=== PATIENT | female | born 1975 | race Caucasian/White ===

== ENCOUNTER 2018-02-24 11:48 | Inpatient (IN) | payer OTHER ==
[~2018-02-24] VITALS: Ht 172.7 cm; Wt 85.5 kg
[2018-02-24] MEDS ORDERED: CLARITIN 1010 MG/TAB PO (12:02)
[2018-02-24] MEDS ORDERED: VITAMIN D31000 IU PO (12:02)
[2018-02-24 12:20] LABS: COLLECTION METHOD CLEAN CATCH
[2018-02-24 12:22] LABS: BASO # 0.1 (0.0-0.2); BASO % 0.6 % (0.0-2.0); EOS # 0.1 (0.0-0.7); EOS % 0.9 % (0-4.0); GRAN # 9.1 (1.4-6.5); GRAN % 72.4 % (42.2-75.2); HEMATOCRIT 39.8 % (37.0-47.0); HEMOGLOBIN 13.5 g/dl (12.5-16.0); LYMPH # 1.9 (1.2-3.4); LYMPH % 14.7 % (20.0-51.0); MEAN CELL VOLUME 90 fl (80.0-100.0); MEAN CORPUSCULAR HEMOGLOBIN 31 pg (27.0-31.0); MEAN CORPUSCULAR HGB CONC 34 g/dl (33.0-37.0); MEAN PLATELET VOLUME 10.6 fl (7.4-10.4); MONO # 1.4 (0.1-0.6); MONO % 11.1 % (1.7-9.3); PLATELET COUNT 285 K/mm3 (130-400); RED BLOOD COUNT 4.43 M/mm3 (4.10-5.30); REDCELL DISTRIBUTION WIDTH-CV 11.8 % (11.5-14.5)
[2018-02-24 12:33] LABS: MUCOUS Present /lpf; PH 6 (5-8); URINE APPEARANCE Hazy; URINE BACTERIA None Seen /hpf; URINE BILIRUBIN Negative (NEGATIVE); URINE BLOOD 1+ (NEGATIVE); URINE COLOR Amber; URINE GLUCOSE Negative (NEGATIVE); URINE KETONE Negative (NEGATIVE); URINE LEUKOCYTE ESTERASE Negative (NEGATIVE); URINE NITRATE Negative (NEGATIVE); URINE PROTEIN(semi-quant) 1+ (NEGATIVE); URINE UROBILINOGEN >=4.0 mg/dL (NEGATIVE)
[2018-02-24 12:35] LABS: ALBUMIN 4.2 gm/dL (3.5-5.0); BILIRUBIN,TOTAL 2.7 mg/dL (0.0-1.0); CREATININE, serum 0.78 mg/dL (0.52-1.25); POTASSIUM 3.8 mmol/L (3.4-5.0); TOTAL PROTEIN 8.7 gm/dL (6.4-8.2)
[2018-02-24 12:46] LABS: C-REACTIVE PROTEIN 14.3 mg/dL (0.0-0.9)
[2018-02-24 15:20] VITALS: BP 121/75; PULSE 96; TEMP 99
[2018-02-24 21:06] VITALS: BP 111/71; PULSE 104; TEMP 101.8
[2018-02-25 00:32] VITALS: BP 122/65; PULSE 95; TEMP 99.2
[2018-02-25 04:01] VITALS: BP 146/92; PULSE 110; TEMP 98.8
[2018-02-25 07:21] LABS: BASO # 0.1 (0.0-0.2); BASO % 0.4 % (0.0-2.0); EOS # 0.1 (0.0-0.7); EOS % 0.8 % (0-4.0); GRAN # 9.2 (1.4-6.5); GRAN % 76.8 % (42.2-75.2); LYMPH # 1.4 (1.2-3.4); LYMPH % 11.7 % (20.0-51.0); MEAN CELL VOLUME 91 fl (80.0-100.0); MEAN CORPUSCULAR HGB CONC 34 g/dl (33.0-37.0); MEAN PLATELET VOLUME 10.7 fl (7.4-10.4); MONO # 1.2 (0.1-0.6); MONO % 9.7 % (1.7-9.3); PLATELET COUNT 236 K/mm3 (130-400); RED BLOOD COUNT 3.74 M/mm3 (4.10-5.30); REDCELL DISTRIBUTION WIDTH-CV 11.9 % (11.5-14.5)
[2018-02-25 07:24] LABS: HEMATOCRIT 34.1 % (37.0-47.0); HEMOGLOBIN 11.5 g/dl (12.5-16.0); MEAN CORPUSCULAR HEMOGLOBIN 31 pg (27.0-31.0)
[2018-02-25 07:39] LABS: ALBUMIN 3.4 gm/dL (3.5-5.0); BILIRUBIN,TOTAL 3.8 mg/dL (0.0-1.0); CHOLESTEROL RISK RATIO 4.5
[2018-02-25 07:53] LABS: BILIRUBIN UNCONJUGATED 2.8 mg/dL (0.0-1.1)
[2018-02-25 08:07] LABS: TSH w REFLEX 1.33 uIU/mL (0.465-4.680)
[2018-02-25 12:28] VITALS: BP 122/69; PULSE 101; TEMP 100.2
[2018-02-25 17:39] VITALS: BP 109/71; PULSE 88; TEMP 99.6
[2018-02-25 19:39] VITALS: BP 124/74; PULSE 84; TEMP 99.1
[2018-02-25 23:28] VITALS: BP 113/69; PULSE 84; TEMP 98.5
[2018-02-26] VITALS (7 sets, daily range): BP systolic 108–128; BP diastolic 71–80; PULSE 77–107; TEMP 98.7–102.1
[2018-02-26 01:03] LABS: ANA SCREEN with REFLEX Negative (Negative)
[2018-02-26 06:27] LABS: BASO % 0.3 % (0.0-2.0); EOS # 0.1 (0.0-0.7); EOS % 1.1 % (0-4.0); GRAN # 7.7 (1.4-6.5); GRAN % 73.9 % (42.2-75.2); HEMOGLOBIN 10.2 g/dl (12.5-16.0); LYMPH # 1.5 (1.2-3.4); LYMPH % 14.2 % (20.0-51.0); MEAN CELL VOLUME 92 fl (80.0-100.0); MEAN CORPUSCULAR HEMOGLOBIN 31 pg (27.0-31.0); MEAN CORPUSCULAR HGB CONC 33 g/dl (33.0-37.0); MEAN PLATELET VOLUME 10.7 fl (7.4-10.4); MONO % 9.8 % (1.7-9.3); PLATELET COUNT 223 K/mm3 (130-400); RED BLOOD COUNT 3.34 M/mm3 (4.10-5.30); REDCELL DISTRIBUTION WIDTH-CV 11.7 % (11.5-14.5)
[2018-02-26 06:30] LABS: HEMATOCRIT 30.7 % (37.0-47.0)
[2018-02-26 06:44] LABS: ALBUMIN 3.1 gm/dL (3.5-5.0); BILIRUBIN UNCONJUGATED 1.5 mg/dL (0.0-1.1); BILIRUBIN,DIRECT 0.9 mg/dL (0.0-0.4); BILIRUBIN,TOTAL 2.4 mg/dL (0.0-1.0); CALCIUM 8.3 mg/dL (8.4-10.2); CREATININE, serum 0.68 mg/dL (0.52-1.25); POTASSIUM 3.8 mmol/L (3.4-5.0); TOTAL PROTEIN 6.5 gm/dL (6.4-8.2)
[2018-02-27 03:33] VITALS: BP 121/74; PULSE 93; TEMP 99.1
[2018-02-27 07:11] LABS: BASO % 0.4 % (0.0-2.0); EOS # 0.1 (0.0-0.7); EOS % 1.3 % (0-4.0); GRAN # 7.1 (1.4-6.5); GRAN % 76.6 % (42.2-75.2); LYMPH # 1.2 (1.2-3.4); LYMPH % 12.7 % (20.0-51.0); MEAN CELL VOLUME 92 fl (80.0-100.0); MEAN CORPUSCULAR HGB CONC 34 g/dl (33.0-37.0); MEAN PLATELET VOLUME 11.7 fl (7.4-10.4); MONO # 0.8 (0.1-0.6); MONO % 8.5 % (1.7-9.3); PLATELET COUNT 246 K/mm3 (130-400); RED BLOOD COUNT 3.07 M/mm3 (4.10-5.30); REDCELL DISTRIBUTION WIDTH-CV 11.9 % (11.5-14.5)
[2018-02-27 07:12] LABS: HEMATOCRIT 28.3 % (37.0-47.0); HEMOGLOBIN 9.5 g/dl (12.5-16.0); MEAN CORPUSCULAR HEMOGLOBIN 31 pg (27.0-31.0)
[2018-02-27 07:25] LABS: BILIRUBIN UNCONJUGATED 0.8 mg/dL (0.0-1.1); BILIRUBIN,DIRECT 0.7 mg/dL (0.0-0.4); BILIRUBIN,TOTAL 1.5 mg/dL (0.0-1.0); CALCIUM 8.2 mg/dL (8.4-10.2); CREATININE, serum 0.65 mg/dL (0.52-1.25); POTASSIUM 3.6 mmol/L (3.4-5.0); TOTAL PROTEIN 6.3 gm/dL (6.4-8.2)
[2018-02-27 07:38] VITALS: BP 116/7; BP 116/77; PULSE 69; TEMP 98.3
[2018-02-27 12:08] VITALS: BP 121/75; PULSE 76; TEMP 98.5
[2018-02-27 15:33] VITALS: BP 123/75; PULSE 90; TEMP 99.7
[2018-02-27 19:23] VITALS: BP 135/80; PULSE 84; TEMP 99.3
[2018-02-27 23:35] VITALS: BP 131/82; PULSE 81; TEMP 98.8
[2018-02-28 03:57] VITALS: BP 137/81; PULSE 80; TEMP 99.4
[2018-02-28 07:20] VITALS: BP 132/88; PULSE 77; TEMP 100.2
[2018-02-28 07:39] LABS: BASO % 0.6 % (0.0-2.0); EOS # 0.2 (0.0-0.7); EOS % 3.4 % (0-4.0); GRAN # 4.1 (1.4-6.5); GRAN % 60.9 % (42.2-75.2); LYMPH # 1.7 (1.2-3.4); LYMPH % 24.7 % (20.0-51.0); MEAN CELL VOLUME 90 fl (80.0-100.0); MEAN CORPUSCULAR HGB CONC 33 g/dl (33.0-37.0); MONO # 0.7 (0.1-0.6); MONO % 9.7 % (1.7-9.3); PLATELET COUNT 286 K/mm3 (130-400); REDCELL DISTRIBUTION WIDTH-CV 11.7 % (11.5-14.5)
[2018-02-28 07:45] LABS: HEMATOCRIT 29.8 % (37.0-47.0); HEMOGLOBIN 9.9 g/dl (12.5-16.0); MEAN CORPUSCULAR HEMOGLOBIN 30 pg (27.0-31.0)
[2018-02-28 07:52] LABS: CALCIUM 8.7 mg/dL (8.4-10.2); CREATININE, serum 0.7 mg/dL (0.52-1.25); POTASSIUM 3.3 mmol/L (3.4-5.0); TOTAL PROTEIN 6.7 gm/dL (6.4-8.2)
[2018-02-28 07:59] LABS: INR 1.1 (0.8-3.0); PROTHROMBIN TIME 12.4 SECONDS (9.7-12.8)
[2018-02-28 09:53] LABS: PLEURAL FLUID RBC 0 /mm3 (0-0); PLEURAL FLUID WBC 854 /mm3
[2018-02-28 10:01] LABS: PLEURAL FLUID COLOR YELLOW
[2018-02-28 10:02] LABS: PLEURAL FLUID APPEARANCE CLEAR
[2018-02-28 10:04] LABS: TOTAL PROTEIN,PLEURAL FLUID 2.9 gm/dL; TRIGLYCERIDE-BODY FLUID 34 mg/dL
[2018-02-28 11:20] VITALS: BP 141/80; PULSE 67; TEMP 99
[2018-02-28 15:22] VITALS: BP 135/82; PULSE 61; TEMP 98.4
[2018-02-28 19:10] VITALS: BP 116/88; PULSE 71; TEMP 98.4
[2018-02-28 23:28] VITALS: BP 124/76; PULSE 61; TEMP 98.5
[2018-03-01 03:38] VITALS: BP 129/75; PULSE 86; TEMP 98.6
[2018-03-01 06:54] LABS: BASO % 0.8 % (0.0-2.0); EOS # 0.2 (0.0-0.7); EOS % 4.2 % (0-4.0); GRAN # 2.2 (1.4-6.5); GRAN % 44.6 % (42.2-75.2); LYMPH % 39.6 % (20.0-51.0); MEAN CELL VOLUME 90 fl (80.0-100.0); MEAN CORPUSCULAR HGB CONC 34 g/dl (33.0-37.0); MEAN PLATELET VOLUME 10.5 fl (7.4-10.4); MONO # 0.5 (0.1-0.6); MONO % 9.8 % (1.7-9.3); PLATELET COUNT 291 K/mm3 (130-400); RED BLOOD COUNT 3.19 M/mm3 (4.10-5.30); REDCELL DISTRIBUTION WIDTH-CV 11.8 % (11.5-14.5)
[2018-03-01 07:05] LABS: HEMATOCRIT 28.6 % (37.0-47.0); HEMOGLOBIN 9.6 g/dl (12.5-16.0); MEAN CORPUSCULAR HEMOGLOBIN 30 pg (27.0-31.0)
[2018-03-01 07:06] LABS: BILIRUBIN,TOTAL 0.7 mg/dL (0.0-1.0); CALCIUM 8.8 mg/dL (8.4-10.2); CREATININE, serum 0.74 mg/dL (0.52-1.25); POTASSIUM 3.5 mmol/L (3.4-5.0); TOTAL PROTEIN 6.5 gm/dL (6.4-8.2)
[2018-03-01 07:40] VITALS: BP 150/89; PULSE 66; TEMP 98.8
[2018-03-01] MEDS ORDERED: NORCO 325 MG-51 TAB PO (07:49)
[2018-03-01 12:03] LABS: LIPASE,BODY FLUID XXX
== END 2018-03-01 11:45 | disposition home or self-care (01) | DRG 871 ==
LOC: COL.ER 11:48 → MEDICAL 14:31
PROVIDERS: Hospitalist; Nurse Practitioner; Nurse Practitioner Family; Physician Assistant
PROC: 0W9B3ZX Drainage of Left Pleural Cavity, Percutaneous Approach, Diagnostic (ICD-10-PCS; principal; 2018-02-27)
DX: A41.9 Sepsis, unspecified organism (principal); K85.90 Acute pancreatitis without necrosis or infection, unspecified; J18.9 Pneumonia, unspecified organism; J90 Pleural effusion, not elsewhere classified; R00.0 Tachycardia, unspecified; E87.6 Hypokalemia; K59.00 Constipation, unspecified; K82.8 Other specified diseases of gallbladder
CPT/HCPCS: 99223-AI; 99232-AI; 99233-AI; 99239; A9537; C9113; J1170; J1644; J2270; J2405; J2543; J3480; J7030; Q9967

== ENCOUNTER → 2018-04-02 | Outpatient (CLI) | payer OTHER ==
[~2018-04-02] MED LIST: CLARITIN 1010 MG/TAB PO; NORCO 325 MG-51 TAB PO; VITAMIN D31000 IU PO
== END ==
LOC: COL.RAD 07:09
DX: K85.80 Other acute pancreatitis without necrosis or infection (principal); K86.89 Other specified diseases of pancreas
CPT/HCPCS: Q9967